=== PATIENT | male | born 1955 | race Caucasian/White ===

== ENCOUNTER 2016-11-25 09:47 | Emergency (ER) | payer OTHER ==
[~2016-11-25] VITALS: Ht 177.8 cm; Wt 86.2 kg
--- NOTE | ~2016-11-25 | EKG ---
[address] [address] ELECTROCARDIOGRAM REPORT Name: IRON ELI Room #: DEP [place]#: [id number] Admission: 11/25/16 Attend Phys: Discharge: 11/25/16 Date of : 51 Report #: [id number] THIS REPORT FOR: //name// [facility] ED Test Date: 2016-11-25 Test Time: 09:51:34 Pat Name: IRON ELI Department: Room: Gender: M Home Child Care Provider: ragini : 1955 Requested By: Russel Guzman Order Number: [id number] MD: Senthil Crockett Measurements Intervals Buhl Rate: 58 P: -27 DC: 174 QRS: -56 QRSD: 116 T: 37 QT: 397 QTc: 390 Interpretive Statements Sinus rhythm Incomplete RBBB and LAFB Electronically Signed On 11-25-2016 11:54:46 CDT by Senthil Crockett [email or web address] <ELECTRONICALLY SIGNED> By: Senthil Crockett MD 11/25/16 1154 [id number] Senthil Crockett MD /LUC
[~2016-11-25 09:47] MED LIST: ALBUTEROL2.5 MG/31 INH; AMLODIPINE BESY10 MG PO; ATORVASTATIN CA40 MG PO; AUGMENTIN 875-1 EACH PO; CELEXA 20 MG TA20 M1 PO; FISH OIL 1,001000 M1 PO; FISH OIL 1,001000 M2 PO; FLONASE 0.05%50 MCG NASAL; FLOVENT HFA 1110 MCG IH; GINKGO BILOBA30 MG; GLUTATHIONE; LEVAQUIN PO; MAGNESIUM500 MG; METHYL CPG; MUCINEX600 MG PO; PREDNISONE; PREDNISONE 10 M10 M1; PREDNISONE 20 M20 MG PO; PRINIVIL20 MG PO; PROAIR HFA8.5 GM IH; PROAIR HFA8.5 GM INH; PROMETHAZINE-C120 ML PO; SAW PALMETTO80 MG; THERAPEUTIC M1 EAC3; TUMERIC; ULTRAM 50MG TAB50 MG PO; VIIBRYD1 EAC1; VITAMIN D 5050000 I1 PO; VITAMIN D2000 UNIT PO; ZOFRAN4 MG PO
[2016-11-25 10:02] LABS: BASOPHILS 0.6 % (0.0-2.0); EOSINOPHILS 5.2 % (0.0-3.0); HEMATOCRIT 43.9 % (42.0-52.0); HEMOGLOBIN 15.2 gm/dL (14.0-18.0); LYMPHOCYTES 26.8 % (24.0-44.0); MCH 29.3 pg (26.0-34.0); MCHC 34.7 g/dL (28.0-37.0); MCV 84.3 fL (80.0-100.0); MONOCYTES 6.9 % (1.0-8.0); PLATELET COUNT 159 thou/uL (150-400); POLYS 60.5 % (36.0-66.0); RDW 13.2 % (10.5-14.5); WBC 6.7 thou/uL (4.0-11.0)
[2016-11-25] MEDS ORDERED: BUPROPION HCL100 MG PO (10:05)
[2016-11-25] MEDS ORDERED: CELEXA 10 MG TA10 M1 PO (10:05)
[2016-11-25 10:06] LABS: MANUAL DIFF NO
[2016-11-25 10:11] LABS: ANION GAP 2 mmol/L (7-16); BUN 21 mg/dL (7-18); CALCIUM 9.1 mg/dL (8.5-10.1); CHLORIDE 108 mmol/L (98-107); CO2 30 mmol/L (21-32); GLUCOSE 113 mg/dL (74-106); POTASSIUM 4.4 mmol/L (3.5-5.1); SODIUM 140 mmol/L (136-145)
[2016-11-25 10:20] LABS: TROPONIN-I < 0.04 ng/mL (<0.04-0.07)
[2016-11-25] MEDS ORDERED: OMEPRAZOLE20 M2 PO (11:25)
== END 2016-11-25 11:47 | disposition home or self-care (01) ==
LOC: ER 09:47
PROVIDERS: Emergency Medicine
DX: R07.89 Other chest pain (principal); J45.909 Unspecified asthma, uncomplicated; K21.9 Gastro-esophageal reflux disease without esophagitis; I10 Essential (primary) hypertension; Z22.322 Carrier or suspected carrier of Methicillin resistant Staphylococcus aureus; Z88.5 Allergy status to narcotic agent